=== PATIENT | male | born 1965 | race Caucasian/White ===

== ENCOUNTER 2024-11-24 15:19 | Emergency (ER) | payer BC, SELFPAY ==
[2024-11-24 15:25] VITALS: BP 159/84; PULSE 85; RESP 18; TEMP 36.4; O2SAT 98; BMI 32.8
--- NOTE | 2024-11-24 15:25 | ED.GENADULT ---
HPI - General Adult General Time Seen by Provider: 15:25 Date Seen: 11/24/24 Chief complaint: Animal Bite Stated complaint: made contact with a bat Time Seen by Provider: 11/24/24 15:25 Source: patient and RN notes reviewed Mode of arrival: ambulatory Limitations: no limitations History of Present Illness HPI narrative: He is a very pleasant 59-year-old gentleman with unknown last tetanus and history of hypertension, prediabetes who comes to the emergency room for evaluation regarding potential bat bite. Gentleman notes he was moving nikolas an a bat fell and landed on the top of his right ear it is unknown if the bed actually bit him. He was unable to find the bat however is it must flown away. He was instructed to clean the area of the contact and he did do that for about 10 minutes. Comes to the emergency room for further evaluation. Related Data Home Medications ?Medication ?Instructions ?Recorded ?Confirmed aspirin 81 mg tablet,delayed 81 mg PO DAILY 11/24/24 11/24/24 release (Adult Aspirin Regimen) lisinopril 20 mg tablet 20 mg PO DAILY 11/24/24 11/24/24 pravastatin 40 mg tablet 40 mg PO QPM 11/24/24 11/24/24 triamterene 75 1 tab PO QAM 11/24/24 11/24/24 mg-hydrochlorothiazide 50 mg tablet Allergies Allergy/AdvReac Type Severity Reaction Status Date / Time No Known Drug Allergies Allergy Verified 11/24/24 15:30 Review of Systems Status of ROS: Reports: 6 or more systems reviewed and unremarkable except as noted in History and below Exam Narrative: Exam Narrative: He is alert and oriented nontoxic in appearance. Examination of the left ear shows some fullness of the external superior ear. I do not detect any discrete bite landrum but there is a 5 local area of erythema with in the generalize redness at the very top of his ear. No bleeding at this time. No respiratory distress. Const: Vital Signs, click to edit/add: Vital Signs - 24 hr 11/24/24 15:25 Temperature 97.6 F Pulse Rate [Pulse Oximeter] 85 Respiratory Rate 18 Blood Pressure [Ri ght Upper Arm] 159/84 H Pulse Oximetry 98 Oxygen Delivery Me thod Room Air Documenting provider has reviewed patient's vital signs: yes Course Course ED Course: Given the high fatality rate from rabies I think we must assume that this gentleman had a positive bite from a bat this morning as he did visualize it. He will need IgG and rabies vaccine. I have asked pharmacy to assist us with this endeavor. In addition his tetanus is out of date from 2010 and thus an Adacel shot has been ordered. Reevaluation(s) Reevaluation #1: Because of gentleman's weight, he is going to get a full mL of IgG. This amounts to 14 mL. We will divide this up into 5 injections for syringes with 3 mL and 1 syringe with 2 mL. They will go into the left deltoid left thigh x2, right thigh and left buttock. Vaccine will go into the right arm. Tetanus will go into the right buttock. Vital Signs Vital signs: Initial Vital Signs Temperature 97.6 F 11/24/24 15:25 Temperature Source Temporal Artery Scan 11/24/24 15:25 Pulse Rate 85 11/24/24 15:25 Pulse Rhythm Regular 11/24/24 15:25 Respiratory Rate 18 11/24/24 15:25 Blood Pressure 159/84 H 11/24/24 15:25 Blood Pressure Mean 109 H 11/24/24 15:25 Blood Pressure Position Supine 11/24/24 15:25 Pulse Oximetry 98 11/24/24 15:25 Oxygen Delivery Method Room Air 11/24/24 15:25 Vital Signs Temperature 97.6 F 11/24/24 15:25 Pulse Rate 85 11/24/24 15:25 Respiratory Rate 18 11/24/24 15:25 Blood Pressure 159/84 H 11/24/24 15:25 Pulse Oximetry 98 11/24/24 15:25 Oxygen Delivery Method Room Air 11/24/24 15:25 Temperature 97.6 F 11/24/24 15:25 Pulse Rate 85 11/24/24 15:25 Respiratory Rate 18 11/24/24 15:25 Blood Pressure 159/84 H 11/24/24 15:25 Pulse Oximetry 98 11/24/24 15:25 Oxygen Delivery Method Room Air 11/24/24 15:25 Medications Administered Medications: Discontinued Medications Generic Name Dose Route Start Last Admin Trade Name Freq PRN Reason Stop Dose Admin Diphtheria/Tetanus/Acell Pertussis 0.5 ml 11/24/24 15:47 11/24/24 16:19 Tetanus/Diphth/Pertussis 0.5 Ml Syringe IM 11/24/24 15:48 0.5 ml .ONCE ONE Administration Rabies Immune Globulin 2,100 unit 11/24/24 15:43 11/24/24 16:21 Rabies Immune Globulin 150 Unit/Ml Inj INFILTRATI 11/24/24 15:44 2,100 unit ONCE ONE Administration Rabies Vaccine 2.5 unit 11/24/24 15:43 11/24/24 16:22 Rabies Vaccine (Rabavert) 2.5 Unit IM 11/24/24 15:44 2.5 unit .ONCE ONE Administration Medical Decision Making MDM Narrative Medical decision making narrative: 1. Bat bite-rabies IgG and vaccine initiated today. Patient will renew to return on day 3 (11/27/24), day 7 12/01/2024 and day 14 12/08/2024 for vaccine series. Monitor for infection increasing redness drainage fever. 2. Tetanus update-Adacel given today. 3. Disposition-home at this time. Return as previously noted. Discharge Plan Discharge Clinical Impression: Bat bite wound Patient Disposition: Home, Self-Care Condition: Unchanged Additional Instructions: Monitor the wound on your ear for infection-please return to the emergency room if you start having fever, worsening swelling, drainage from the ear. You received today the 1st dose of the rabies vaccine. You will need to return on days 3 (11/27/2024) day 7 (12/01/2024) and day 14 (12/08/2024) for the other doses. You also received rabies IgG. Not need to receive any more of that. You also received your tetanus update. Prescriptions: No Action pravastatin 40 mg tablet 40 mg PO QPM lisinopril 20 mg tablet 20 mg PO DAILY triamterene-hydrochlorothiazid 75-50 mg tablet 1 tab PO QAM aspirin [Adult Aspirin Regimen] 81 mg tablet,delayed release (DR/EC) 81 mg PO DAILY Follow Up/Referrals: Provider,Not a Local [Primary Care Provider, Family Practice] Stand Alone Forms: [employer] Info Instructions
--- OUTSIDE RECORDS SUMMARY | 2024-11-24 16:05 | XMS_ITS | Clinical Summary ---
Author Organization [facility] Address [address] [place] [id number] Care Team Providers Care Drier Attendant Name Role Phone Tonia Han Primary Care Provider [phone] Allergies No known active allergies Medications multivitamin (MVI) tablet take 1 tablet by oral route once daily with food 0 05/09/20 09 Active aspirin (ECOTRIN) 81 mg enteric coated tablet Take 1 tablet by mouth once daily with a meal. 0 01/18/20 14 Active blood sugar diagnostic (ONETOUCH VERIO TEST STRIPS) stripIndications:C ontrolled type 2 diabetes mellitus without complication, without long-term current use of insulin (HC) Dispense test strips covered by the patient insurance. Test 1 times per day. 100 Strip 12 07/24/19 21 Active lancets (ONETOUCH DELICA PLUS LANCET) 30 gauge miscIndications:Co ntrolled type 2 diabetes mellitus without complication, without long-term current use of insulin (HC) As directed. Dispense item covered by pt ins. E11.9 NIDDM type II - Test 1 time/day 100 Each 12 07/24/19 21 Active blood-glucose meterIndications:C ontrolled type 2 diabetes mellitus without complication, without long-term current use of insulin (HC) Dispense meter, test strips, lancets covered by pt ins One touch Verio flex. E11.9 NIDDM type II - Test 1 time/day 1 Device 07/24/19 21 Active triamterene-hydroc hlorothiazide, 75-50 mg, (MAXZIDE) 75-50 mg tabletIndications: Essential hypertension Take 1 Tablet by mouth once daily in the morning. 90 Tablet 3 03/11/20 24 Active pravastatin (PRAVACHOL) 40 mg tabletIndications: Mixed hyperlipidemia Take 1 Tablet (40 mg) by mouth at bedtime. 90 Tablet 3 03/11/20 24 Active lisinopriL (PRINIVIL; ZESTRIL) 20 mg tabletIndications: Essential hypertension Take 1 Tablet (20 mg) by mouth once daily. 90 Tablet 3 03/11/20 24 Active polyethylene glycol-electrolyte (GOLYTELY) 236-22.74-6.74 -5.86 gram suspensionIndicati ons:Encounter for screening colonoscopy Drink 2 liters (half the bottle) the day before colonoscopy and 2 liters (remaining prep) 6 hours prior to colonoscopy appointment. 4000 mL 03/29/20 24 Active cyclobenzaprine (FLEXERIL) 10 mg tabletIndications: Spasmodic torticollis,Muscle spasms of neck Take 1 Tablet (10 mg) by mouth 3 times daily if needed for Muscle Spasm. 15 Tablet 05/26/19 25 Active ibuprofen (ADVIL; MOTRIN) 600 mg tabletIndications: Spasmodic torticollis,Muscle spasms of neck Take 1 Tablet (600 mg) by mouth every 6 hours if needed for Pain. Maximum of 3200 mg in 24 hours. 30 Tablet 05/26/19 25 Active Active Problems Problem Noted Date Diagnosed Date Colon polyp 04/22/2024 Overview (04/22/2024): Colonoscopy 04/2024 TA, repeat in 7 years Controlled type 2 diabetes m ellitus without complication, without long-term current use of insulin 07/31/2021 Routine adult health maintenance 01/17/2014 Overview (01/17/2014): Colonoscopy 01/2014 normal repeat in 10 years Other and unspecified hyperlipidemia 06/18/2009 Unspecified essential hypertension Encounters Date Type Department Care Team Description 11/24/[address] [facility] [address] [place] [address] Tonia Han DO Bite from Last 3 Months Immunizations Immunization Administration Dates Next Due COVID-19 vaccine (Moderna 100mcg/0.5mL) DYLAN REGAN 08/31/2020,08/03/2020 Influenza Virus, Unspecified 02/03/2017 Influenza, IIV3 (Age >=3 years) 02/05/2016 Influenza, IIV4 02/03/2018 Influenza, IIV4 (=>6mos) MDV 02/28/2020, 03/01/2019,02/03/2017,2015 Influenza, Injectable, Mdck, Quadrivalent, W/preservative 02/25/2022,02/26/2021 Measles 07/13/1969 Polio Virus, Unspecified 03/13/1976 Td (Age >=7 Years) 06/12/2020,02/16/2000 Tdap 07/17/2010 Zoster (Shingrix-RZV, recombinant) 09/24/2022, Family History Medical History Relation Name Comments Arthritis Father Heart Disease Father CAD Hyperlipidemia Father Hypertension Father Cancer Maternal Grandmother stomach Arthritis Mother Hyperlipidemia Mother Hypertension Mother Diabetes Paternal Aunt Other Sister MS Relation Name Status Comments Father Maternal Grandmother Mother Paternal Aunt Sister Social History Tobacco Use Types Packs/Day Years Used Date Smoking Tobacco: Former Smokeless Tobacco: Never Tobacco Cessation:Counseling Given: Yes Alcohol Use Standard Drinks/Week Comments Yes 7 (1 standard drink = 0.6 oz pur e alcohol) 1-2 per day PHQ-2 Answer Date Recorded PHQ-2 TOTAL SCORE 0 09/24/2022 Social Connections Answer Date Recorded Do you often feel lonely or isolated from those around you? 0 04/12/2024 Financial Resource Strain Answer Date R ecorded Difficulty of Paying Living Expenses 3 04/12/2024 Difficulty of Paying Living Expenses Not on file 04/12/2024 Food Insecurity Answer Date Recorded Do you worry your food will run out before you are able to buy more? 1 04/12/2024 Transportation Needs Answer Date Record ed Does lack of transportation keep you from medica l appointments? 1 04/12/2024 Does lack of transportation keep you from work, meetings or getting things that you need? 1 04/12/2024 Housing Stability Answer Date Recorded What is your housing situation today? 1 04/12/2024 Interpersonal Safety Answer Date Record ed Are you being hit, kicked, p ushed or yelled at (see row info)? No 05/25/2024 Interpersonal Safety Abuse 12 - 18 Not on file 05/25/2024 Interpersonal Safety Ambulatory Vulnerability No t on file 05/25/2024 Utilities Answer Date Recorded Do you have trouble paying f or utilities (for example, heat, electricity, water, phone)? 1 04/12/2024 Sex and Gender Information Value Date Recorded Sex Assigned at Not on file Legal Sex Male 5:23 AM STONECUTTER ASSISTANT Gender Identity Not on file Sexual Orientation Not on file Occupation Industry Job Start Date Job End Date Not on file Not on file Not on file Not on file Obstetrics History Last Filed Vital Signs Vital Sign Reading Time Taken Comments Blood Pressure 167/80 05/26/2024 1:58 AM STONECUTTER ASSISTANT Pulse 72 05/26/2024 1:58 AM STONECUTTER ASSISTANT Temperature 36.8 C (98.3 F) 05/25/2024 11:04 PM STONECUTTER ASSISTANT Respiratory Rate 14 05/26/2024 1:30 AM STONECUTTER ASSISTANT Oxygen Saturation 96% 05/26/2024 1:58 AM STONECUTTER ASSISTANT Inhaled Oxygen Concentration - - Weight 103.4 kg (228 lb) 05/25/2024 11:04 PM STONECUTTER ASSISTANT Height 182.9 cm (6') 05/25/2024 11:04 PM STONECUTTER ASSISTANT Body Mass Index 30.92 05/25/2024 11:04 PM STONECUTTER ASSISTANT Plan of Treatment Health Maintenance Due Date Last Done Comments Pneumococcal series for age 50+ (1 of 2 - PCV) 09/02/1982 RSV vaccine for adults or (1 - Risk 60-74 years 1-dose series) 2023 Depression screening for age 12+ 09/25/2023 09/24/2022, 07/31/2021, 06/14/2020, Additional history exists COVID-19 vaccine series ( - 2023- season) 2024 08/31/2020, 08/03/2020 Influenza Vaccine (#1) 2025 , 02/26/2021, 02/28/2020, Additional history exists BMI (ht and wt on same day) for age 18+ 04/12/2025 04/12/2024, 09/24/2022, 07/31/2021, Additional history exists Lipids for age 45-75 03/11/2029 03/11/2024, 07/31/2021, 06/12/2020, Additional history exists Tetanus booster 06/12/2030 06/12/2020, 03/0 06/2010, 02/16/2000 Colonoscopy through age 75 04/19/203104/19, 01/17/2014, 01/17/2014 HIV for age 15-65 Completed 09/24/2022 Hepatitis C screening for age 18-79 Completed 09/24/2022 Zoster (shingles) series for age 50+ Completed 09/24/2022, 07/31/2021 Hepatitis B series for 19+ Aged Out N o longer eligible based on patient's age to complete this topic Procedures Procedure Name Priority Date/Time Associated Diagnosis Comments COLONOSCOPY SCREENING Routine 04/19/2024 12:00 AM STONECUTTER ASSISTANT Encounter for screening colonoscopy LIPID PANEL W REFLEX MEASURED LDL Routine 03/11/2024 12:45 PM CDT Controlled type 2 diabetes mellitus without complication, without long-term current use of insulin (HC) LC HIV-1/O/2, 4TH GENERATION Routine 09/24/2022 8:45 AM CDT Screening for HIV (human immunodeficiency virus) LC HCV ANTIBODY RFX TO QUANT PCR Routine 09/24/2022 8:45 AM CDT Need for hepatitis C screening test from Last 3 Months or Most Recently Relevant to Health Maintenance Results * COLONOSCOPY SCREENING (04/19/2024 12:00 AM STONECUTTER ASSISTANT) us Lazarai Emely DO GI PROCEDURE ORD Final Result * (ABNORMAL) LIPID PANEL W REFLEX MEASURED LDL (03/11/2024 12:45 PM CDT) CHOLESTEROL, TOTAL 175 <200 mg/dL [facility] HDL CHOLESTEROL 47 > OR = 40 mg/dL [facility] TRIGLYCERIDES 165(H) <150 mg/dL [facility] LDL-CHOLESTEROL 102(H) mg/dL (calc) [facility] Comment: Reference range: <100 Desirable range <100 mg/dL for primary prevention; <70 mg/dL for patients with CHD or diabetic patients with > or = 2 CHD risk factors. LDL-C is now calculated using the Emily calculation, which is a validated novel method providing better accuracy than the Friedewald equation in the estimation of LDL-C. Reginald GRIFFIN et al. KAMALA. 2013;310(19): 2035-2638 (http://education.[employer]/faq/AVM528) CHOL/HDLC RATIO 3.7 <5.0 (calc) [facility] NON HDL CHOLESTEROL 128 <130 mg/dL (calc) [facility] Comment: For patients with diabetes plus 1 major ASCVD risk factor, treating to a non-HDL-C goal of <100 mg/dL (LDL-C of <70 mg/dL) is considered a therapeutic option. Blood BLOOD SPECIMEN / Unknown 03/11/2024 12:45 PM CDT 03/11/2024 12:45 PM CDT us Adei Emely DO CHEMISTRY Final Result [facility] [address] [address], [address] [address] * LC HCV ANTIBODY RFX TO QUANT PCR (09/24/2022 8:45 AM CDT) Pathologist [facility] HCV Ab Non Reactive Non Reactive 09/26/2022 10:06 PM CDT [facility] Blood BLOOD SPECIMEN / Unknown Venipuncture / Unknown 09/24/2022 8:45 AM CDT 09/24/2022 8:48 AM CDT Narrative [facility] ([facility]) - 09/26/2022 10:06 PM CDT Performed at: [address] [place] [id number] Improvement Manager: Titi Morrow MD, Phone: [phone] us Tonia Mullerglo DO LABORATORY Final Result [facility] ([facility]) [address] [place] [address], * LC HIV-1/O/2, 4TH GENERATION (09/24/2022 8:45 AM CDT) HIV Scr 4th Gen Non Reactive Non Reactive 09/27/2022 5:13 AM CDT [facility] ([facility]) Comment: HIV Negative HIV-1/HIV-2 antibodies and HIV-1 p24 antigen were NOT detected. There is no laboratory evidence of HIV infection. Blood BLOOD SPECIMEN / Unknown Venipuncture / Unknown 09/24/2022 8:45 AM CDT 09/24/2022 8:48 AM CDT Narrative [facility] ([facility]) - 09/27/2022 5:13 AM CDT Performed at: [address] [place] [address] [id number] Improvement Manager: Titi Morrow MD, Phone: [phone] us Tonia Celeste LABORATORY Final Result [facility] ([facility]) [address] [place] [address], from Last 3 Months or Most Recently Relevant to Health Maintenance Insurance [facility] ADVANTAGE Care Teams Drier Attendant Relationship Specialty Start Date End Date Tonia Han DO [address] [place] [address] PCP - General Family Practice 03/04/24
[2024-11-24] MEDS: TETANUS/DIPHTH/PERTUSSIS 0.5 ML SYRINGE IM (16:19)
[2024-11-24] MEDS: RABIES IMMUNE GLOBULIN 150 UNIT/ML INJ 2100 UNIT INFILTRATI (16:21)
[2024-11-24] MEDS: RABIES VACCINE (RABAVERT) 2.5 UNIT IM (16:22)
== END 2024-11-24 16:50 | disposition home or self-care (01) ==
PROVIDERS: Emergency Provider Family Medicine
DX: S01.352A Open bite of left ear, initial encounter (principal); W55.81XA Bitten by other mammals, initial encounter; Z20.3 Contact with and (suspected) exposure to rabies; Z23 Encounter for immunization
CPT/HCPCS: 90377; 90471; 90472; 90715; 96372; 99283; 99284; 90675

== ENCOUNTER 2024-12-08 11:19 | Outpatient (RCR) | payer BC, SELFPAY ==
[2024-11-27 17:58] VITALS: BP 171/72; PULSE 74; RESP 18; TEMP 36.6; O2SAT 98
[2024-11-27] MEDS: RABIES VACCINE (RABAVERT) 2.5 UNIT IM (18:01)
[2024-12-01 17:09] VITALS: BP 153/79; PULSE 76; RESP 16; TEMP 36.8; O2SAT 97
[2024-12-01] MEDS: RABIES VACCINE (RABAVERT) 2.5 UNIT IM (17:11)
[2024-12-08 11:31] VITALS: BP 139/76; PULSE 75; RESP 16; TEMP 36.3; O2SAT 95
[2024-12-08] MEDS: RABIES VACCINE (RABAVERT) 2.5 UNIT IM (11:36)
== END 2024-12-08 11:41 | disposition home or self-care (01) ==
PROVIDERS: Visit Provider Family Medicine
DX: Z29.14 Encounter for prophylactic rabies immune globulin (principal); Z20.3 Contact with and (suspected) exposure to rabies; Z23 Encounter for immunization
CPT/HCPCS: 80307; 90675